=== PATIENT | female | born 1940 | race Caucasian/White ===

== ENCOUNTER → 2017-02-28 | Outpatient (CLI) | payer MEDICARE ==
[~2017-02-28] MED LIST: AMIT10TA PO; AMIT25TA PO; ATOR40TA PO; BRIN8DRO EACHEYE; CYCL7.5T25 PO; DIPH25TA12 PO; GABA100C8 PO; HYDR-3144 PO; HYDR-3307 PO; LATA2.5D3 EACHEYE; LISI40TA PO; LOVA40TA2 PO; METH454P PO; VITAMIN A PO; VITAMIN B6 PO; VITAMIN C PO; VITAMIN E PO
== END | disposition home or self-care (01) ==
LOC: STAR 10:18
PROVIDERS: ATTEND Surgery
DX: Z01.818 Encounter for other preprocedural examination (principal)
CPT/HCPCS: 93005